=== PATIENT | male | born 1960 | race Caucasian/White ===

== ENCOUNTER → 2016-07-31 | Outpatient (CLI) | payer BC, SELFPAY ==
[~2016-07-31] MED LIST: ALEVE220 M1 PO; ELIQUIS2.5 MG PO; IBUPROFEN800 MG PO; NORCO 10-325 T1 EACH PO; PERCOCET 10-321 EACH PO; PROVENTIL HFA 61 INH INH; TYLENOL 500 MG500 MG PO; TYLENOL325 MG PO; XARELTO10 MG PO
== END ==
LOC: KOH-I 13:45
DX: M25.551 Pain in right hip (principal); M87.88 Other osteonecrosis, other site; M85.88 Other specified disorders of bone density and structure, other site
CPT/HCPCS: 73721

== ENCOUNTER 2017-02-02 08:15 | Inpatient (IN) | payer BC ==
[~2017-02-02] VITALS: Ht 165.1 cm; Wt 77.6 kg
[~2017-02-02 08:15] MED LIST changes: -ELIQUIS2.5 MG PO; -PERCOCET 10-321 EACH PO; -PROVENTIL HFA 61 INH INH; -TYLENOL 500 MG500 MG PO
[2017-02-02] MEDS ORDERED: TYLENOL 500 MG500 MG PO (08:56)
[2017-02-02] MEDS ORDERED: ALEVE220 M1 PO (08:59)
[2017-02-03 06:42] LABS: BUN/CREATININE RATIO 14 (0-10); HEMOGLOBIN 10.6 gm/dl (14.0-17.5); RED BLOOD COUNT 3.27 M/UL (4.20-5.50)
[2017-02-04 05:05] LABS: HEMOGLOBIN 10.1 gm/dl (14.0-17.5); RED BLOOD COUNT 3.1 M/UL (4.20-5.50); WHITE BLOOD COUNT 11.5 K/UL (4.5-11.0)
[2017-02-04 05:19] LABS: BUN/CREATININE RATIO 10 (0-10)
[2017-02-04] MEDS ORDERED: PERCOCET 10-321 EACH PO (18:47)
[2017-02-04] MEDS ORDERED: ELIQUIS2.5 MG PO (18:48)
[2017-02-04] MEDS ORDERED: PROVENTIL HFA 61 INH INH (18:50)
== END 2017-02-04 20:00 | disposition home or self-care (01) | DRG 470 ==
LOC: ZOBSOF 08:16 → M/S 16:39
PROVIDERS: ADMIT Orthopaedic Surgery
PROC: 0SR903A Replacement of Right Hip Joint with Ceramic Synthetic Substitute, Uncemented, Open Approach (ICD-10-PCS; principal; 2017-02-02 11:30)
DX: M87.9 Osteonecrosis, unspecified (principal); J98.11 Atelectasis; D62 Acute posthemorrhagic anemia; M16.11 Unilateral primary osteoarthritis, right hip; J44.9 Chronic obstructive pulmonary disease, unspecified; Z87.442 Personal history of urinary calculi; Z96.642 Presence of left artificial hip joint; F17.210 Nicotine dependence, cigarettes, uncomplicated; Z80.1 Family history of malignant neoplasm of trachea, bronchus and lung; Z80.7 Family history of other malignant neoplasms of lymphoid, hematopoietic and related tissues; Z80.9 Family history of malignant neoplasm, unspecified; R09.02 Hypoxemia; Z91.19 Patient's noncompliance with other medical treatment and regimen
CPT/HCPCS: 36415; 36600; 71010; 73501; 76000; 80048; 82803; 85025; 94664; 97110; 97116; 97530; 97535; C1776; J0690; J1200; J1885; J2250; J2405; J2795; J3010; J3370; J7030; J7050; J7120

== ENCOUNTER 2021-12-29 23:07 | Emergency (ER) | payer BC ==
[~2021-12-29 23:07] MED LIST changes: +ELIQUIS2.5 MG PO; +FLEXERIL 10 MG10 MG PO; +PERCOCET 10-321 EACH PO; +PROVENTIL HFA 61 INH INH; +TYLENOL 500 MG500 MG PO
== END 2021-12-30 02:30 | disposition home or self-care (01) ==
LOC: ER1 23:07
DX: U07.1 COVID-19 (principal); J06.9 Acute upper respiratory infection, unspecified; F17.210 Nicotine dependence, cigarettes, uncomplicated; Z88.6 Allergy status to analgesic agent; E78.5 Hyperlipidemia, unspecified
CPT/HCPCS: 0240U; 71045; 99283